=== PATIENT | male | born 1960 | race American Indian/Alaskan Native ===

== ENCOUNTER 2018-09-20 11:02 | Inpatient (IN) | payer SELFPAY ==
--- NOTE | 2018-09-20 11:29 | Emergency Department Report ---
Blank Doc - Documentation Documentation: This is a 58-year-old male that presents with right leg pain and swelling. De nies any injuries or trauma. This initial assessment/diagnostic orders/clinical plan/treatment(s) is/are subject to change based on patient's health status, clinical progression and re- assessment by fellow clinical providers in the ED. Further treatment and workup at subsequent clinical providers discretion. Patient/guardians urged not to elope from the ED as their condition may be serious if not clinically assessed and managed. Initial orders include: 1- Patient sent to [facility] for further evaluation and treatment 2- labs 3- doppler 4- EKG
[2018-09-20 11:56] LABS: Basophils % (Auto) 0.7 % (0.0-1.8); Eosinophils # (Auto) 0.3 K/mm3 (0.0-0.4); Hematocrit 45.9 % (35.5-45.6); Hemoglobin 15.3 gm/dl (11.8-15.2); Lymphocytes # (Auto) 1.3 K/mm3 (1.2-5.4); Lymphocytes % (Auto) 24.4 % (13.4-35.0); Mean Corpuscular HGB Conc 33 % (32-34); Mean Corpuscular Volume 104 fl (84-94); Monocytes # (Auto) 0.7 K/mm3 (0.0-0.8); Monocytes % (Auto) 12.6 % (0.0-7.3); Platelet Count 256 K/mm3 (140-440); Red Blood Count 4.43 M/mm3 (3.65-5.03); Red Cell Distribution Width 14.6 % (13.2-15.2)
[2018-09-20 12:16] LABS: Alanine Aminotransferase 9 units/L (7-56); Albumin 3.8 g/dL (3.9-5); BUN/Creatinine Ratio 13; Blood Urea Nitrogen 14 mg/dL (9-20); Calcium 9.3 mg/dL (8.4-10.2); Hemolysis Index 20
--- NOTE | 2018-09-20 13:32 | Vascular Lab Report ---
DUPLEX DOPPLER LOWER EXTREMITY VEINS, RIGHT INDICATION: right leg swellign. TECHNIQUE: Duplex doppler imaging was performed through the veins of the right lower extremity using venous comp ression and other maneuvers. COMPARISON: None available. FINDINGS: Common Femoral vein: Negative. Superficial Femoral vein: Occlusive DVT. Popliteal vein: Occlusive DVT. Calf veins: Occlusive DVT. Additional findings: Superficial venous thrombosis is noted within the right calf as well. IMPRESSION: 1. Occlusive DVT within the mid to distal right lower extremity, as above. 2. Superficial venous thrombosis about the right knee/right calf. Signer Name: Drake Awad MD Signed: 09/20/2018 1:27 PM Workstation Name: [id number]
[2018-09-20 15:48] LABS: Bilirubin,Urine NEG (Negative); Blood,Urine NEG (Negative); Color,Urine Straw (Yellow); Protein,Urine <15 mg/dL mg/dL (Negative); Urobilinogen,Urine < 2.0 mg/dL (<2.0)
--- NOTE | 2018-09-20 16:00 | Emergency Department Report ---
ED General Adult HPI - General Chief complaint: Extremity Injury, Lower Stated complaint: SWOLLEN RT LEG Time Seen by Provider: 09/20/18 11:27 Source: patient, EMS Mode of arrival: Ambulatory Limitations: No Limitations - History of Present Illness Initial comments: This is a 58-year-old man that has had a swollen right leg for at least one week. Does not report any traveling. He does not report any breathing difficulty or chest pain. He states that he thought he had a crap in his leg about a week ago but it never went away. He is no prior history of DVT. He states that he does drink him quantity of alcohol. Has not been to the doctor for quite some time. He has no known history of chronic liver disease. -: Gradual, week(s) Location: right, lower extremity Severity scale (0 -10): 0 Quality: aching Consistency: intermittent Improves with: none Associated Symptoms: denies other symptoms - Related Data Allergies Allergy/AdvReac Type Severity Reaction Status Date / Time No Known Allergies Allergy Unverified 09/20/18 12:24 ED Review of Systems ROS: Stated complaint: SWOLLEN RT LEG Other details as noted in HPI Constitutional: denies: chills, fever Eyes: denies: eye pain, eye discharge, vision change ENT: denies: ear pain, throat pain Respiratory: denies: cough, shortness of breath, wheezing Cardiovascular: denies: chest pain, palpitations Endocrine: no symptoms reported Gastrointestinal: denies: abdominal pain, nausea, diarrhea Genitourinary: denies: urgency, dysuria Musculoskeletal: as per HPI. denies: back pain, joint swelling, arthralgia Skin: denies: rash, lesions Neurological: denies: headache, weakness, paresthesias Psychiatric: denies: anxiety, depression Hematological/Lymphatic: denies: easy bleeding, easy bruising ED Past Medical Hx - Past Medical History Previous Medical History?: No - Surgical History Past Surgical History?: No - Social History Smoking Status: Former Smoker Substance Use Type: Alcohol ED Physical Exam - General Limitations: No Limitations General appearance: alert, in no apparent distress - Head Head exam: Present: atraumatic, normocephalic - Eye Eye exam: Present: normal appearance, PERRL, EOMI. Absent: scleral icterus - ENT ENT exam: Present: mucous membranes moist - Neck Neck exam: Present: normal inspection. Absent: tenderness, meningismus - Respiratory Respiratory exam: Present: normal lung sounds bilaterally. Absent: respiratory distress - Cardiovascular Cardiovascular Exam: Present: regular rate, normal rhythm. Absent: systolic murmur, diastolic murmur, rubs, gallop - GI/Abdominal GI/Abdominal exam: Present: soft, distended, tenderness, guarding, rebound, rigid, normal bowel sounds, other (palpable fluid wave consistent with ascites) - Rectal Rectal exam: Present: deferred - Extremities Exam Extremities exam: Present: calf tenderness, other (right lower extremity is really quite swollen and somewhat tense. Neurovascular exam is intact. There is erythema. There is calf Tenderness.) - Back Exam Back exam: Present: normal inspection - Neurological Exam Neurological exam: Present: alert, oriented X3, CN II-XII intact. Absent: motor sensory deficit - Psychiatric Psychiatric exam: Present: normal affect, normal mood - Skin Skin exam: Present: warm, dry, intact, normal color. Absent: rash ED Course Vital Signs 09/20/18 09/20/18 09/20/18 11:27 14:45 14:46 Temperature 98.1 F 97.8 F Pulse Rate 57 L 57 L Respiratory 18 17 16 Rate Blood Pressure 154/98 Blood Pressure 141/86 [Left] O2 Sat by Pulse 97 98 98 Oximetry - Reevaluation(s) Reevaluation #1: Patient states that he applied for disability and he "will get my card in 2 years." I am concerned he is a very poor candidate for patient treatment. His ascites may be related to chronic liver disease or an occult malignancy. I will refer him to the hospitalist service for further workup, medical decision rakesh gruber and disposition. He did not have a coagulation profile and that has drawn. He has a quite significant occlusive DVT of the right leg from the common femoral down. 09/20/18 15:59 ED Medical Decision Making - Lab Data Result diagrams: 09/20/18 11:35 09/20/18 11:35 Laboratory Results - last 24 hr 09/20/18 09/20/18 09/20/18 11:35 11:35 14:50 WBC 5.3 RBC 4.43 Hgb 15.3 H Hct 45.9 H MCV 104 H MCH 35 H MCHC 33 RDW 14.6 Plt Count 256 Lymph % (Auto) 24.4 [place] % (Auto) 12.6 H Eos % (Auto) 5.0 H Baso % (Auto) 0.7 Lymph # 1.3 [place] # 0.7 Eos # 0.3 Baso # 0.0 Seg Neutrophils % 57.3 Seg Neutrophils # 3.0 Sodium 142 Potassium 3.9 Chloride 104.0 Carbon Dioxide 29 Anion Gap 13 BUN 14 Creatinine 1.1 Estimated GFR > 60 BUN/Creatinine Ratio 13 Glucose 100 Calcium 9.3 Total Bilirubin 0.30 AST 16 ALT 9 Alkaline Phosphatase 67 NT-Pro-B Natriuret Pep 34.34 Total Protein 7.3 Albumin 3.8 L Albumin/Globulin Ratio 1.1 Urine Color Straw Urine Turbidity Clear Urine pH 6.0 Ur Specific [place] 1.005 Urine Protein <15 mg/dl Urine Glucose (UA) Neg Urine Ketones Neg Urine Blood Neg Urine Nitrite Neg Urine Bilirubin Neg Urine Urobilinogen < 2.0 Ur Leukocyte Esterase Neg Urine WBC (Auto) 1.0 Urine RBC (Auto) 2.0 - EKG Data -: EKG Interpreted by Ok EKG shows normal: sinus rhythm Rate: bradycardia - EKG Data When compared to previous EKG there are: no significant change Interpretation: no acute changes - Radiology Data Radiology results: report reviewed Critical care attestation.: If time is entered above; I have spent that time in minutes in the direct care of this critically ill patient, excluding procedure time. ED Disposition Clinical Impression: Deep vein thrombosis of right lower extremity Qualifiers: Affected thrombotic vein of extremity: femoral Chronicity: acute Qualified Code(s): I82.411 - Acute embolism and thrombosis of right femoral vein Ascites Qualifiers: Ascites type: other type Qualified Code(s): R18.8 - Other ascites Disposition: OP ADMIT IP TO THIS HOSP Is pt being admited?: Yes Does the pt Need Aspirin: No Condition: Stable Time of Disposition: 16:02
[2018-09-20 16:17] LABS: INR 0.9 (0.87-1.13)
[2018-09-20 16:20] LABS: Partial Thromboplastin Time 35.2 Sec. (24.2-36.6)
--- NOTE | 2018-09-20 16:26 | XRay Report ---
CHEST 1 VIEW INDICATION: hypertension. COMPARISON: None. FINDINGS: Support devices: None. Heart: Normal. Lungs/Pleura: No acute pulmonary or pleural findings. IMPRESSION: 1. No acute findings. Signer Name: Drake Awad MD Signed: 09/20/2018 4:22 PM Workstation Name: [id number]
[2018-09-20] MEDS ORDERED: SODIUM CHLORIDE FLUSH SYRINGE 10 ML IV PRN (21:57)
[2018-09-20] MEDS ORDERED: ZOFRAN IV PRN (21:57)
[2018-09-20] MEDS ORDERED: TYLENOL PO PRN (21:57)
--- NOTE | 2018-09-20 21:57 | History and Physical Report ---
History of Present Illness Date of examination: 09/20/18 Date of admission: 09/20/18 16:49 Chief complaint: RLE swelling for 1 month History of present illness: This is a 58-year-old man that has had a swollen right leg for at least one week. Does not report any traveling. He does not report any breathing difficulty or chest pain. He states that he thought he had a crap in his leg about a week ago but it never went away. He is no prior history of DVT. He s tates that he does drink him quantity of alcohol. Has not been to the doctor for quite some time. He has no known history of chronic liver disease. Past Medical History Previous Medical History?: No Surgical History Past Surgical History?: No Social History Smoking Status: Former Smoker Substance Use Type: Alcohol Family History Htn Review of Systems ROS: Stated complaint: SWOLLEN RT LEG Other details as noted in HPI Constitutional: denies: chills, fever Eyes: denies: eye pain, eye discharge, vision change ENT: denies: ear pain, throat pain Respiratory: denies: cough, shortness of breath, wheezing Cardiovascular: denies: chest pain, palpitations Endocrine: no symptoms reported Gastrointestinal: denies: abdominal pain, nausea, diarrhea Genitourinary: denies: urgency, dysuria Musculoskeletal: as per HPI. denies: back pain, joint swelling, arthralgia Skin: denies: rash, lesions Neurological: denies: headache, weakness, paresthesias Psychiatric: denies: anxiety, depression Hematological/Lymphatic: denies: easy bleeding, easy bruising Medications and Allergies Allergies Allergy/AdvReac Type Severity Reaction Status Date / Time No Known Allergies Allergy Unverified 09/20/18 12:24 Exam - Constitutional Vitals: Temp Pulse Resp BP Pulse Ox 97.8 F 57 L 18 141/86 98 09/20/18 14:45 09/20/18 14:45 09/20/18 20:23 09/20/18 14:45 09/20/18 14:46 General appearance: Present: no acute distress, well-nourished - EENT Eyes: Present: PERRL ENT: hearing intact, clear oral mucosa - Neck Neck: Present: supple, normal ROM - Respiratory Respiratory effort: normal Respiratory: bilateral: CTA - Cardiovascular Heart rate: 50 Rhythm: regular Heart Sounds: Present: S1 & S2. Absent: rub, click - Extremities Extremities: no ischemia, pulses intact, pulses symmetrical, No edema, abnormal (RLE swelling the whole calf region,Homans sign positive) Peripheral Pulses: within normal limits - Abdominal General gastrointestinal: Present: soft, non-tender, non-distended, normal bowel sounds Male genitourinary: Present: normal - Integumentary Integumentary: Present: clear, warm, dry - Musculoskeletal Musculoskeletal: gait normal, strength equal bilaterally - Psychiatric Psychiatric: appropriate mood/affect, intact judgment & insight - Neurologic Neurologic: CNII-XII intact, moves all extremities Results - Labs CBC & Chem 7: 09/20/18 11:35 09/20/18 11:35 Labs: Laboratory Last Values WBC 5.3 K/mm3 (4.5-11.0) 09/20/18 11:35 RBC 4.43 M/mm3 (3.65-5.03) 09/20/18 11:35 Hgb 15.3 gm/dl (11.8-15.2) H 09/20/18 11:35 Hct 45.9 % (35.5-45.6) H 09/20/18 11:35 MCV 104 fl (84-94) H 09/20/18 11:35 MCH 35 pg (28-32) H 09/20/18 11:35 MCHC 33 % (32-34) 09/20/18 11:35 RDW 14.6 % (13.2-15.2) 09/20/18 11:35 Plt Count 256 K/mm3 (140-440) 09/20/18 11:35 Lymph % (Auto) 24.4 % (13.4-35.0) 09/20/18 11:35 [place] % (Auto) 12.6 % (0.0-7.3) H 09/20/18 11:35 Eos % (Auto) 5.0 % (0.0-4.3) H 09/20/18 11:35 Baso % (Auto) 0.7 % (0.0-1.8) 09/20/18 11:35 Lymph # 1.3 K/mm3 (1.2-5.4) 09/20/18 11:35 [place] # 0.7 K/mm3 (0.0-0.8) 09/20/18 11:35 Eos # 0.3 K/mm3 (0.0-0.4) 09/20/18 11:35 Baso # 0.0 K/mm3 (0.0-0.1) 09/20/18 11:35 Seg Neutrophils % 57.3 % (40.0-70.0) 09/20/18 11:35 Seg Neutrophils # 3.0 K/mm3 (1.8-7.7) 09/20/18 11:35 PT 11.9 Sec. (12.2-14.9) L 09/20/18 15:51 INR 0.90 (0.87-1.13) 09/20/18 15:51 APTT 35.2 Sec. (24.2-36.6) 09/20/18 15:51 Sodium 142 mmol/L (137-145) 09/20/18 11:35 Potassium 3.9 mmol/L (3.6-5.0) 09/20/18 11:35 Chloride 104.0 mmol/L (98-107) 09/20/18 11:35 Carbon Dioxide 29 mmol/L (22-30) 09/20/18 11:35 13 mmol/L 09/20/18 11:35 BUN 14 mg/dL (9-20) 09/20/18 11:35 1.1 mg/dL (0.8-1.5) 09/20/18 11:35 Estimated GFR > 60 ml/min 09/20/18 11:35 13 % 09/20/18 11:35 Glucose 100 mg/dL (75-100) 09/20/18 11:35 Calcium 9.3 mg/dL (8.4-10.2) 09/20/18 11:35 0.30 mg/dL (0.1-1.2) 09/20/18 11:35 AST 16 units/L (5-40) 09/20/18 11:35 ALT 9 units/L (7-56) 09/20/18 11:35 67 units/L (35-129) 09/20/18 11:35 NT-Pro-B Natriuret Pep 34.34 pg/mL (0-900) 09/20/18 11:35 7.3 g/dL (6.3-8.2) 09/20/18 11:35 3.8 g/dL (3.9-5) L 09/20/18 11:35 1.1 % 09/20/18 11:35 Straw (Yellow) 09/20/18 14:50 Clear (Clear) 09/20/18 14:50 6.0 (5.0-7.0) 09/20/18 14:50 Ur Specific [place] 1.005 (1.003-1.030) 09/20/18 14:50 <15 mg/dl mg/dL (Negative) 09/20/18 14:50 Neg mg/dL (Negative) 09/20/18 14:50 Neg mg/dL (Negative) 09/20/18 14:50 Neg (Negative) 09/20/18 14:50 Neg (Negative) 09/20/18 14:50 Neg (Negative) 09/20/18 14:50 < 2.0 mg/dL (<2.0) 09/20/18 14:50 Ur Leukocyte Esterase Neg (Negative) 09/20/18 14:50 1.0 /HPF (0.0-6.0) 09/20/18 14:50 2.0 /HPF (0.0-6.0) 09/20/18 14:50 - Imaging and Cardiology EKG: report reviewed (Sinus Bradycardia) Imaging and Cardiology: RLE Venous Duplex Occlusive DVT mid to distal RLE SVT Rt calf Assessment and Plan Advance Directives: Yes (FC) VTE prophylaxis?: Chemical Plan of care discussed with patient/family: Yes - Patient Problems (1) Deep vein thrombosis of right lower extremity Current Visit: Yes Status: Acute Qualifiers: Affected thrombotic vein of extremity: popliteal Chronicity: acute Qualified Code(s): I82.431 - Acute embolism and thrombosis of right popliteal vein Plan to address problem: On Lovenox and coumadin (2) Malnutrition Current Visit: Yes Status: Chronic Qualifiers: Malnutrition type: protein-calorie malnutrition Protein-calorie malnutrition severity: mild Qualified Code(s): E44.1 - Mild protein-calorie malnutrition Plan to address problem: On Dietary supplements (3) DVT prophylaxis Current Visit: Yes Status: Acute Plan to address problem: On Lovenox and GI prophylaxis
[2018-09-20] MEDS ORDERED: PERCOCET 5/325 PO PRN (21:58)
[2018-09-20] MEDS ORDERED: DILAUDID IV PRN (21:58)
[2018-09-20] MEDS ORDERED: LOVENOX SUB-Q SCH (22:00)
[2018-09-20] MEDS ORDERED: NACL 0.9% 1000 ML 1,000 ML IV SCH (22:00)
[2018-09-20] MEDS: PEPCID PO SCH (22:45)
[2018-09-20] MEDS: LOVENOX SUB-Q SCH (22:45)
[2018-09-20] MEDS: SODIUM CHLORIDE FLUSH SYRINGE 10 ML IV SCH (22:46)
[2018-09-20] MEDS ORDERED: COUMADIN PO SCH (23:00)
[2018-09-20] MEDS ORDERED: COUMADIN 10 MG, COUMADIN 2.5 MG PO SCH (23:00)
[2018-09-21 07:26] LABS: Alanine Aminotransferase 11 units/L (7-56); Albumin 3.9 g/dL (3.9-5); BUN/Creatinine Ratio 10; Blood Urea Nitrogen 12 mg/dL (9-20); Calcium 9.3 mg/dL (8.4-10.2); Hemolysis Index 13
[2018-09-21 07:32] LABS: Basophils % (Auto) 0.7 % (0.0-1.8); Eosinophils # (Auto) 0.3 K/mm3 (0.0-0.4); Eosinophils % (Auto) 6.2 % (0.0-4.3); Hematocrit 46.3 % (35.5-45.6); Hemoglobin 15.4 gm/dl (11.8-15.2); Lymphocytes # (Auto) 1.9 K/mm3 (1.2-5.4); Lymphocytes % (Auto) 35.6 % (13.4-35.0); Mean Corpuscular HGB Conc 33 % (32-34); Mean Corpuscular Volume 104 fl (84-94); Monocytes # (Auto) 0.7 K/mm3 (0.0-0.8); Platelet Count 267 K/mm3 (140-440); Red Blood Count 4.47 M/mm3 (3.65-5.03); Red Cell Distribution Width 14.8 % (13.2-15.2)
[2018-09-21] MEDS: PEPCID PO SCH ×2 (09:51→21:40)
[2018-09-21] MEDS: LOVENOX SUB-Q SCH (09:53)
--- NOTE | 2018-09-21 13:10 | Progress Note ---
Assessment and Plan (1) Deep vein thrombosis of right lower extremity Current Visit: Yes Status: Acute Qualifiers: Affected thrombotic vein of extremity: popliteal Chronicity: acute Qualified Code(s): I82.431 - Acute embolism and thrombosis of right popliteal vein Plan to address problem: changed to eliquis, monitor o/n (2) Malnutrition Current Visit: Yes Status: Chronic Qualifiers: Malnutrition type: protein-calorie malnutrition Protein-calorie malnutrition severity: mild Qualified Code(s): E44.1 - Mild protein-calorie malnutrition Plan to address problem: On Dietary supplements (3) DVT prophylaxis Current Visit: Yes Status: Acute Plan to address problem: On eliquis and GI prophylaxis Subjective Date of service: 09/22/18 Interval history: patient seen and examined denies any chest pain or SOB, felling better tolerated diet Objective - Constitutional General appearance: Present: no acute distress, well-nourished - EENT Eyes: PERRL, EOM intact ENT: hearing intact, clear oral mucosa Ears: bilateral: normal - Neck Neck: supple, normal ROM - Respiratory Respiratory effort: normal Respiratory: bilateral: CTA - Cardiovascular Rhythm: regular Heart Sounds: Present: S1 & S2. Absent: gallop, rub Extremities: pulses intact, No edema, normal color, Full ROM - Gastrointestinal General gastrointestinal: Present: soft, non-tender, non-distended, normal bowel sounds - Integumentary Integumentary: clear, warm, dry - Musculoskeletal Musculoskeletal: 1, strength equal bilaterally - Neurologic Neurologic: moves all extremities - Psychiatric Psychiatric: memory intact, appropriate mood/affect, intact judgment & insight - Labs CBC & Chem 7: 09/22/18 05:16 09/21/18 06:51 Labs: Abnormal lab results 09/20/18 09/21/18 09/21/18 Range/Units 15:51 06:51 06:51 Hgb 15.4 H (11.8-15.2) gm/dl Hct 46.3 H (35.5-45.6) % MCV 104 H (84-94) fl MCH 35 H (28-32) pg Lymph % (Auto) 35.6 H (13.4-35.0) % [place] % (Auto) 12.0 H (0.0-7.3) % Eos % (Auto) 6.2 H (0.0-4.3) % PT 11.9 L (12.2-14.9) Sec. Carbon Dioxide 31 H (22-30) mmol/L - Imaging and cardiology Chest x-ray: report reviewed
[2018-09-21] MEDS: SODIUM CHLORIDE FLUSH SYRINGE 10 ML IV SCH ×2 (16:28→21:41)
[2018-09-21] MEDS: ELIQUIS PO SCH (21:40)
[2018-09-22 06:02] LABS: Basophils % (Auto) 1.2 % (0.0-1.8); Eosinophils # (Auto) 0.2 K/mm3 (0.0-0.4); Eosinophils % (Auto) 5.4 % (0.0-4.3); Hematocrit 42.7 % (35.5-45.6); Hemoglobin 14.4 gm/dl (11.8-15.2); Lymphocytes # (Auto) 1.4 K/mm3 (1.2-5.4); Lymphocytes % (Auto) 32.9 % (13.4-35.0); Mean Corpuscular HGB Conc 34 % (32-34); Mean Corpuscular Volume 103 fl (84-94); Monocytes # (Auto) 0.5 K/mm3 (0.0-0.8); Monocytes % (Auto) 11.2 % (0.0-7.3); Platelet Count 249 K/mm3 (140-440); Red Blood Count 4.13 M/mm3 (3.65-5.03); Red Cell Distribution Width 14.8 % (13.2-15.2)
[2018-09-22 06:10] LABS: INR 1.14 (0.87-1.13)
[2018-09-22 06:28] VITALS: BP 136/91
[2018-09-22] MEDS: ELIQUIS PO SCH (10:03)
[2018-09-22] MEDS: PEPCID PO SCH (10:03)
[2018-09-22] MEDS: SODIUM CHLORIDE FLUSH SYRINGE 10 ML IV SCH (10:04)
--- NOTE | 2018-09-22 12:05 | Discharge Summary ---
Providers - Providers Date of Admission: 09/20/18 16:49 Date of discharge: 09/22/18 Attending physician: FARRUKH MALDONADO 09/21/18 13:09 Consult to Physician [CONS] Routine Comment: Consulting Provider: DEE MAN Physician Instructions: Reason For Exam: DVT [facility] Condition: Stable Pertinent studies: CXR duplex LE Hospital course: This is a 58-year-old man that has had a swollen right leg for at least one week. Does not report any traveling. He does not report any breathing difficulty or chest pain. He states that he thought he had a crap in his leg about a week ago but it never went away. He is no prior history of DVT. He states that he does drink him quantity of alcohol. Has not been to the doctor for quite some time. He has no known history of chronic liver disease. Discharge diagnosis and management: (1) Deep vein thrombosis of right lower extremity Current Visit: Yes Status: Acute Qualifiers: Affected thrombotic vein of extremity: popliteal Chronicity: acute Qualified Code(s): I82.431 - Acute embolism and thrombosis of right popliteal vein Plan to address problem: changed to eliquis, monitor o/n (2) Malnutrition Current Visit: Yes Status: Chronic Qualifiers: Malnutrition type: protein-calorie malnutrition Protein-calorie malnutrition severity: mild Qualified Code(s): E44.1 - Mild protein-calorie malnutrition Plan to address problem: On Dietary supplements Physical exam - Constitutional General appearance: Present: no acute distress, well-nourished - EENT Eyes: PERRL, EOM intact ENT: hearing intact, clear oral mucosa Ears: bilateral: normal - Neck Neck: supple, normal ROM - Respiratory Respiratory effort: normal Respiratory: bilateral: CTA - Cardiovascular Rhythm: regular Heart Sounds: Present: S1 & S2. Absent: gallop, rub Extremities: pulses intact, No edema, normal color, Full ROM - Gastrointestinal General gastrointestinal: Present: soft, non-tender, non-distended, normal bowel sounds - Integumentary Integumentary: clear, warm, dry - Musculoskeletal Musculoskeletal: 1, strength equal bilaterally - Neurologic Neurologic: moves all extremities - Psychiatric Psychiatric: memory intact, appropriate mood/affect, intact judgment & insight Disposition: DC-01 TO HOME OR SELFCARE Time spent for discharge: 34 minutes Core Measure Documentation - Palliative Care Palliative Care/ Comfort Measures: Not Applicable - Core Measures Any of the following diagnoses?: DVT/PE - VTE Discharge Requirements Deep Vein Thrombosis/Pulmonary Embolism Present on Admission: Yes Has pt received <5 days of overlap therapy or INR<2.0: No (placed on eliquis, so overlap not needed) Anticoagulant overlap therapy prescribed at discharge: No Contraindication No Overlap Therapy order at DC: Not Indicated Exam - Constitutional Vitals: Temp Pulse Resp BP Pulse Ox 98.3 F 56 L 18 136/91 98 09/22/18 06:28 09/22/18 05:23 09/22/18 05:23 09/22/18 05:23 09/22/18 05:23 Plan Activity: advance as tolerated Weight Bearing Status: Weight Bear as Tolerated Diet: low fat, low salt Follow up with: FANNY ANGEL MD [Primary Care Provider] - 7 Days DEE MAN MD [Staff Physician] - 7 Days Prescriptions: Apixaban [Eliquis] 10 mg PO Q12HR #60 tablet
== END 2018-09-22 15:20 | disposition home or self-care (01) | DRG 300 ==
LOC: ED 11:02 → 3A 16:49
PROVIDERS: ADMIT Internal Medicine; ATTEND Internal Medicine
DX: I82.431 Acute embolism and thrombosis of right popliteal vein (principal); R18.8 Other ascites; E44.1 Mild protein-calorie malnutrition; I82.411 Acute embolism and thrombosis of right femoral vein; Z87.891 Personal history of nicotine dependence; Z82.49 Family history of ischemic heart disease and other diseases of the circulatory system; Z68.26 Body mass index [BMI] 26.0-26.9, adult
CPT/HCPCS: 36415; 71045; 80053; 81001; 83036; 83880; 85025; 85610; 85730; 93005; 93010; 96365; 96372; G0378; J1650; J7030